=== PATIENT | female | born 1995 | race Caucasian/White ===

== ENCOUNTER 2017-10-07 04:15 | Emergency (ER) | payer OTHER ==
[~2017-10-07] VITALS: Ht 162.6 cm; Wt 84.8 kg
[2017-10-07 06:39] VITALS: BP 138/85; TEMP 98.8
== END 2017-10-07 06:40 | disposition home or self-care (01) ==
LOC: ED 04:15
DX: S00.83XA Contusion of other part of head, initial encounter (principal); Y04.0XXA Assault by unarmed brawl or fight, initial encounter; Y93.89 Activity, other specified; Y92.89 Other specified places as the place of occurrence of the external cause; H92.03 Otalgia, bilateral
CPT/HCPCS: 81025; 99283

== ENCOUNTER 2017-10-27 11:20 | Outpatient (CLI) | payer OTHER | END 2017-10-27 20:01 | disposition home or self-care (01) | LOC: LABW 11:20 | DX: N91.5 Oligomenorrhea, unspecified (principal) | CPT/HCPCS: 36415; 84702 ==

== ENCOUNTER 2018-11-24 08:24 | Emergency (ER) | payer OTHER ==
[~2018-11-24] VITALS: Ht 160 cm; Wt 83.9 kg
[2018-11-24 08:27] VITALS: TEMP 98
[2018-11-24 10:01] VITALS: BP 129/78
== END 2018-11-24 10:01 | disposition home or self-care (01) ==
LOC: ED 08:24
DX: N93.8 Other specified abnormal uterine and vaginal bleeding (principal)
CPT/HCPCS: 81025; 84702; 99283

== ENCOUNTER 2019-04-03 12:56 | Emergency (ER) | payer OTHER ==
[~2019-04-03] VITALS: Ht 160 cm; Wt 81.6 kg
[2019-04-03 15:06] VITALS: BP 127/73; TEMP 98.7
== END 2019-04-03 15:09 | disposition home or self-care (01) ==
LOC: ED 12:56
DX: J06.9 Acute upper respiratory infection, unspecified (principal); J40 Bronchitis, not specified as acute or chronic
CPT/HCPCS: 87502; 87651; 99283